=== PATIENT | male | born 1965 | race Caucasian/White ===

== ENCOUNTER 2017-07-31 16:00 | Day surgery (SDC) | payer SELFPAY ==
[~2017-07-31] VITALS: Ht 170.2 cm; Wt 83.6 kg
[~2017-07-31 16:00] MED LIST: DESYREL 100MG100 MG PO; DESYREL 50MG50 MG PO; FEROSUL325 MG PO; FLAGYL500 MG PO; K-TAB20 PO; LOPRESSOR 225 MG/TAB PO; MEBENDAZOLE100 MG PO; NORCO 325 MG-51 TAB PO; PREVACID 15MG15 M1 PO; PRIL40 PO; ZOFRAN 4MG T4 MG/TAB PO
[2017-07-31] MEDS ORDERED: DESYREL 50MG50 MG PO (16:08)
[2017-07-31 18:01] LABS: BASO % 0.2 % (0.0-2.0); EOS % 0.2 % (0-4.0); GRAN # 10.9 (1.4-6.5); GRAN % 83.2 % (42.2-75.2); HEMATOCRIT 40.4 % (42.0-52.0); HEMOGLOBIN 14.1 g/dl (13.5-18.0); LYMPH # 0.9 (1.2-3.4); LYMPH % 6.7 % (20.0-51.0); MEAN CELL VOLUME 90 fl (80.0-100.0); MEAN CORPUSCULAR HEMOGLOBIN 31 pg (27.0-31.0); MEAN CORPUSCULAR HGB CONC 35 g/dl (33.0-37.0); MEAN PLATELET VOLUME 8.6 fl (7.4-10.4); MONO # 1.2 (0.1-0.6); MONO % 9.2 % (1.7-9.3); PLATELET COUNT 230 K/mm3 (130-400); RED BLOOD COUNT 4.49 M/mm3 (4.20-5.60); REDCELL DISTRIBUTION WIDTH-CV 13.8 % (11.5-14.5)
[2017-07-31 18:11] LABS: ALBUMIN 4.1 gm/dL (3.5-5.0); CALCIUM 8.7 mg/dL (8.4-10.2); CREATININE, serum 0.88 mg/dL (0.66-1.25); TOTAL PROTEIN 7.1 gm/dL (6.4-8.2)
[2017-07-31 18:14] LABS: POTASSIUM 2.9 mmol/L (3.4-5.0)
[2017-07-31 21:02] VITALS: BP 102/51; PULSE 103; TEMP 98.5
[2017-07-31 21:49] VITALS: BP 115/69; PULSE 103
[2017-07-31 22:19] VITALS: BP 123/65; PULSE 101; TEMP 98.5
[2017-07-31 23:19] VITALS: BP 120/72; PULSE 87; TEMP 98.7
[2017-08-01 00:19] VITALS: BP 118/70; PULSE 87; TEMP 98.9
[2017-08-01 01:39] VITALS: BP 130/80; PULSE 95
== END 2017-08-01 01:00 | disposition home or self-care (01) ==
LOC: COL.ER 16:00 → SDCO 18:58 → SURG 18:58 → EDBEDREQ 19:11 → SDCO 08-01 01:00
PROVIDERS: Emergency Medicine
DX: T18.5XXA Foreign body in anus and rectum, initial encounter (principal); K62.6 Ulcer of anus and rectum; F17.210 Nicotine dependence, cigarettes, uncomplicated
CPT/HCPCS: OP; J0330; J1100; J2704; J2765; J3010; J3480; J7030; J7120

== ENCOUNTER 2018-12-10 23:22 | Emergency (ER) | payer SELFPAY ==
[~2018-12-10] VITALS: Ht 170.2 cm; Wt 73.6 kg
[2018-12-10 23:50] VITALS: TEMP 96.9
[2018-12-11 00:25] LABS: HEMATOCRIT 42.6 % (42.0-52.0); HEMOGLOBIN 13.8 g/dl (13.5-18.0); MEAN CELL VOLUME 76 fl (80.0-100.0); MEAN CORPUSCULAR HEMOGLOBIN 25 pg (27.0-31.0); MEAN CORPUSCULAR HGB CONC 32 g/dl (33.0-37.0); MEAN PLATELET VOLUME 9.9 fl (7.4-10.4); PLATELET COUNT 282 K/mm3 (130-400); RED BLOOD COUNT 5.59 M/mm3 (4.20-5.60); REDCELL DISTRIBUTION WIDTH-CV 19.4 % (11.5-14.5)
[2018-12-11 00:38] LABS: ALANINE AMINOTRANSFERASE 41 U/L (21-72); ALBUMIN 4.8 gm/dL (3.5-5.0); ALKALINE PHOSPHATASE 75 U/L (50-136); ANION GAP 17 mmol/L (7-16); AST,SGOT 86 U/L (15-37); BILIRUBIN,TOTAL 0.6 mg/dL (0.0-1.0); BLOOD UREA NITROGEN 64 mg/dL (9-20); CALCIUM 9.6 mg/dL (8.4-10.2); CARBON DIOXIDE 17 mmol/L (22-30); CHLORIDE 101 mmol/L (98-107); CREATININE, serum 3.41 (0.66-1.25); GLUCOSE 120 mg/dL (74-106); LIPASE 107 U/L (23-300); POTASSIUM 4.4 mmol/L (3.4-5.0); SODIUM 135 mmol/L (137-145); TOTAL PROTEIN 8.6 gm/dL (6.4-8.2)
[2018-12-11 00:44] LABS: ALCOHOL(ethanol),MEDICAL < 10 mg/dL; ANISOCYTOSIS 1+; BAND 4 % (0-10); LYMPHOCYTE 7 % (20.0-51.0); MICROCYTOSIS 1+; NEUTROPHILS 80 % (42.0-75.2); PLATELET ESTIMATE NORMAL (NORMAL)
[2018-12-11 00:48] LABS: TROPONIN-I 0.097 ng/mL (0.000-0.035)
[2018-12-11 01:04] LABS: COLLECTION METHOD CLEAN CATCH
[2018-12-11 01:17] LABS: MUCOUS Present /lpf; PH 5 (5-8); URINE APPEARANCE Clear; URINE BACTERIA Rare /hpf; URINE BILIRUBIN Negative (NEGATIVE); URINE BLOOD 3+ (NEGATIVE); URINE COLOR Yellow; URINE GLUCOSE Negative (NEGATIVE); URINE KETONE Negative (NEGATIVE); URINE LEUKOCYTE ESTERASE 1+ (NEGATIVE); URINE NITRATE Negative (NEGATIVE); URINE PROTEIN(semi-quant) 1+ (NEGATIVE); URINE UROBILINOGEN Negative (NEGATIVE)
[2018-12-11 02:00] VITALS: BP 139/104; PULSE 94
== END 2018-12-11 02:10 | disposition short-term general hospital (02) ==
LOC: COL.ER 23:22
PROVIDERS: Nurse Practitioner
DX: N39.0 Urinary tract infection, site not specified (principal); N17.9 Acute kidney failure, unspecified; I48.91 Unspecified atrial fibrillation; F17.210 Nicotine dependence, cigarettes, uncomplicated; Z98.890 Other specified postprocedural states
CPT/HCPCS: A4216; J0696; J2405; J7030

== ENCOUNTER 2019-07-21 00:17 | Emergency (ER) | payer SELFPAY ==
[~2019-07-21] VITALS: Ht 170.2 cm; Wt 79.5 kg
[2019-07-21 00:44] LABS: COLLECTION METHOD CLEAN CATCH
[2019-07-21 02:11] LABS: MUCOUS Present /lpf; PH 5 (5-8); URINE APPEARANCE Cloudy; URINE BACTERIA Rare /hpf; URINE BILIRUBIN Negative (NEGATIVE); URINE BLOOD Negative (NEGATIVE); URINE COLOR Yellow; URINE GLUCOSE Negative (NEGATIVE); URINE KETONE Negative (NEGATIVE); URINE LEUKOCYTE ESTERASE 2+ (NEGATIVE); URINE NITRATE Positive (NEGATIVE); URINE PROTEIN(semi-quant) Negative (NEGATIVE)
[2019-07-21] MEDS ORDERED: OMNICEF 300MG300 MG PO (03:13)
[2019-07-21 04:00] VITALS: BP 122/60; PULSE 62; TEMP 97.9
== END 2019-07-21 04:20 | disposition home or self-care (01) ==
LOC: COL.ER 00:17
PROVIDERS: Physician Assistant
DX: N39.0 Urinary tract infection, site not specified (principal); F17.210 Nicotine dependence, cigarettes, uncomplicated
CPT/HCPCS: J0696

== ENCOUNTER 2019-10-18 13:05 | Observation (INO) | payer SELFPAY ==
[2019-10-17 22:21] VITALS: BP 157/87; PULSE 85; TEMP 98.3
[~2019-10-18] VITALS: Ht 172.7 cm; Wt 88.6 kg
[2019-10-18] VITALS (13 sets, daily range): BP systolic 154–167; BP diastolic 88–100; PULSE 81–90; TEMP 98
[~2019-10-18 13:05] MED LIST changes: +OMNICEF 300MG300 MG PO
[2019-10-18 15:00] LABS: BASO # 0.1 (0.0-0.2); BASO % 0.9 % (0.0-2.0); EOS # 0.5 (0.0-0.7); EOS % 6.9 % (0-4.0); GRAN # 3.7 (1.4-6.5); GRAN % 54.6 % (42.2-75.2); HEMATOCRIT 43.9 % (42.0-52.0); HEMOGLOBIN 14.1 g/dl (13.5-18.0); LYMPH # 1.8 (1.2-3.4); LYMPH % 25.8 % (20.0-51.0); MEAN CELL VOLUME 89 fl (80.0-100.0); MEAN CORPUSCULAR HEMOGLOBIN 28 pg (27.0-31.0); MEAN CORPUSCULAR HGB CONC 32 g/dl (33.0-37.0); MEAN PLATELET VOLUME 8.7 fl (7.4-10.4); MONO # 0.8 (0.1-0.6); MONO % 11.1 % (1.7-9.3); PLATELET COUNT 250 K/mm3 (130-400); RED BLOOD COUNT 4.96 M/mm3 (4.20-5.60); REDCELL DISTRIBUTION WIDTH-CV 15.7 % (11.5-14.5)
[2019-10-18 15:04] LABS: PROTHROMBIN TIME 11.3 SECONDS (9.7-12.8)
[2019-10-18 15:06] LABS: BILIRUBIN,TOTAL 0.6 mg/dL (0.0-1.0); CALCIUM 8.5 mg/dL (8.4-10.2); CREATININE, serum 0.71 (0.66-1.25); POTASSIUM 3.4 mmol/L (3.4-5.0); TOTAL PROTEIN 7.3 gm/dL (6.4-8.2)
--- NOTE | 2019-10-18 17:34 | NUR ---
patient arrived to the floor at this time. He is awake and alert. First set of vitals are stable. Pt denies pain at this time. Lung sounds are clear, heart sounds are normal. Radial and pedal pulses were easily palpable, bowel sounds present. No incision site. Will continue to monitor vitals and post op status.
--- NOTE | 2019-10-18 19:13 | NUR ---
Recevied report from UZMA Vick. Pt is currently sitting in bed eating his dinner. Pt has his call light within reach and his bed is in lowest position.
--- NOTE | 2019-10-18 22:30 | NUR ---
Pt was discharged at 2200. Pt IV was discontinued at this time. Pt were within the normal limits for him. Pt did inform me that he did not have a ride. supervisor buffing and pasting was contacted and the pt was provided with a taxi ride home. Pt was educated on when to follow up with and appointment. He was given the information to contact his doctor if he experience rectal bleeding or pain. He was educated on remaining on a regular diet, he had no restriction, and activity as tolerated. Pt was wheeled out of the hospital via wheelchair. Pt was able to collect all of his valuables out of his room which was his clothes that he had on and his cell phone. After exiting the hosptial he was also able to load up his bike in the back of his taxi drivers van. Pt was safely in the taxi with his cable reeler and the ticket for his taxi ride was given to the cable reeler.
== END 2019-10-18 22:15 | disposition home or self-care (01) ==
LOC: COL.ER 13:05 → JCC 17:29
PROVIDERS: Family Medicine; ADMIT Surgery
DX: T18.5XXA Foreign body in anus and rectum, initial encounter (principal); F17.210 Nicotine dependence, cigarettes, uncomplicated; I48.91 Unspecified atrial fibrillation; D64.9 Anemia, unspecified
CPT/HCPCS: G0378; J0330; J1100; J1885; J2405; J2704; J3010; J7030

== ENCOUNTER 2019-11-17 13:24 | Emergency (ER) | payer SELFPAY ==
[~2019-11-17] VITALS: Ht 172.7 cm; Wt 86.4 kg
[2019-11-17 13:27] VITALS: TEMP 97.1
[2019-11-17 14:24] LABS: BASO # 0.1 (0.0-0.2); BASO % 0.6 % (0.0-2.0); EOS # 0.5 (0.0-0.7); EOS % 4.1 % (0-4.0); GRAN # 8.5 (1.4-6.5); GRAN % 73.6 % (42.2-75.2); HEMATOCRIT 42.8 % (42.0-52.0); HEMOGLOBIN 14.1 g/dl (13.5-18.0); LYMPH # 1.3 (1.2-3.4); LYMPH % 11.2 % (20.0-51.0); MEAN CELL VOLUME 89 fl (80.0-100.0); MEAN CORPUSCULAR HEMOGLOBIN 29 pg (27.0-31.0); MEAN CORPUSCULAR HGB CONC 33 g/dl (33.0-37.0); MEAN PLATELET VOLUME 9.8 fl (7.4-10.4); MONO # 1.2 (0.1-0.6); MONO % 10.2 % (1.7-9.3); PLATELET COUNT 284 K/mm3 (130-400); RED BLOOD COUNT 4.79 M/mm3 (4.20-5.60); REDCELL DISTRIBUTION WIDTH-CV 15.8 % (11.5-14.5)
[2019-11-17 14:30] LABS: PROTHROMBIN TIME 11.5 SECONDS (9.7-12.8)
[2019-11-17 14:33] LABS: ALANINE AMINOTRANSFERASE 18 U/L (4-49); ALBUMIN 3.9 gm/dL (3.5-5.0); ALKALINE PHOSPHATASE 83 U/L (50-136); AST,SGOT 29 U/L (15-37); BILIRUBIN,TOTAL 0.7 mg/dL (0.0-1.0); BLOOD UREA NITROGEN 14 mg/dL (9-20); CALCIUM 8.7 mg/dL (8.4-10.2); CARBON DIOXIDE 24 mmol/L (22-30); CREATININE, serum 0.99 (0.66-1.25); GLUCOSE 138 mg/dL (74-106); POTASSIUM 3.5 mmol/L (3.4-5.0); SODIUM 136 mmol/L (137-145); TOTAL PROTEIN 7.3 gm/dL (6.4-8.2)
[2019-11-17 14:34] LABS: CHLORIDE 102 mmol/L (98-107)
[2019-11-17 14:48] LABS: ALCOHOL(ethanol),MEDICAL < 10 mg/dL; ANION GAP 10 mmol/L (7-16)
[2019-11-17 15:35] LABS: COLLECTION METHOD CLEAN CATCH
[2019-11-17 15:50] LABS: MUCOUS Present /lpf; PH 6 (5-8); URINE APPEARANCE Hazy; URINE BACTERIA Moderate /hpf; URINE BILIRUBIN Negative (NEGATIVE); URINE BLOOD 1+ (NEGATIVE); URINE COLOR Yellow; URINE GLUCOSE Negative (NEGATIVE); URINE KETONE Negative (NEGATIVE); URINE LEUKOCYTE ESTERASE 1+ (NEGATIVE); URINE NITRATE Positive (NEGATIVE); URINE PROTEIN(semi-quant) Negative (NEGATIVE); URINE RBC 0-2 /hpf; URINE UROBILINOGEN Negative (NEGATIVE)
[2019-11-17 16:00] VITALS: BP 143/91; PULSE 78
[2019-11-17 16:02] LABS: TRICYCLIC ANTIDEPRESS URINE NEGATIVE
== END 2019-11-17 16:00 | disposition short-term general hospital (02) ==
LOC: COL.ER 13:24
PROVIDERS: Emergency Medicine; Nurse Practitioner Primary Care
DX: S02.841A Fracture of lateral orbital wall, right side, initial encounter for closed fracture (principal); S02.31XA Fracture of orbital floor, right side, initial encounter for closed fracture; S02.19XA Other fracture of base of skull, initial encounter for closed fracture; S06.5X0A Traumatic subdural hemorrhage without loss of consciousness, initial encounter; I16.9 Hypertensive crisis, unspecified; F17.210 Nicotine dependence, cigarettes, uncomplicated; Z23 Encounter for immunization; Y04.0XXA Assault by unarmed brawl or fight, initial encounter
CPT/HCPCS: J0295; J1170; J3010; J7030; J7050

== ENCOUNTER 2020-07-03 14:28 | Emergency (ER) | payer OTHER ==
[~2020-07-03] VITALS: Ht 170.2 cm; Wt 81.8 kg
[~2020-07-03 14:28] MED LIST changes: +PREDNISONE20 MG PO
[2020-07-03 14:37] VITALS: BP 178/110; TEMP 98.1
[2020-07-03] MEDS ORDERED: CEPHALEXIN500 M1 PO (15:13)
[2020-07-03 15:41] VITALS: PULSE 78
== END 2020-07-03 15:40 | disposition home or self-care (01) ==
LOC: COL.ER 14:28
DX: L30.9 Dermatitis, unspecified (principal); L01.00 Impetigo, unspecified; F17.200 Nicotine dependence, unspecified, uncomplicated

== ENCOUNTER 2020-07-23 01:53 | Emergency (ER) | payer OTHER ==
[~2020-07-23] VITALS: Ht 172.7 cm; Wt 81.8 kg
[~2020-07-23 01:53] MED LIST changes: +CEPHALEXIN500 M1 PO
[2020-07-23 01:57] VITALS: TEMP 97.7
[2020-07-23] MEDS ORDERED: PREDNISONE20 MG PO (02:23)
[2020-07-23] MEDS ORDERED: BACTRIM DS 8001 TAB PO (02:23)
[2020-07-23 02:35] VITALS: BP 151/99; PULSE 82
== END 2020-07-23 02:35 | disposition home or self-care (01) ==
LOC: COL.ER 01:53
DX: L30.9 Dermatitis, unspecified (principal); L01.00 Impetigo, unspecified
CPT/HCPCS: J7512

== ENCOUNTER 2022-03-02 22:54 | Day surgery (SDC) | payer SELFPAY ==
[~2022-03-02] VITALS: Ht 172.7 cm; Wt 84.1 kg
[~2022-03-02 22:54] MED LIST changes: +BACTRIM DS 8001 TAB PO
[2022-03-03 02:22] VITALS: BP 155/110; PULSE 80; TEMP 98.3
== END 2022-03-03 ==
LOC: COL.ER 22:54 → SDCO 03-03 00:38
DX: T18.5XXA Foreign body in anus and rectum, initial encounter (principal); X58.XXXA Exposure to other specified factors, initial encounter
CPT/HCPCS: J2405; J2704; J3010; J7120

== ENCOUNTER 2022-09-15 11:17 | Day surgery (SDC) | payer SELFPAY ==
[~2022-09-15] VITALS: Ht 172.7 cm; Wt 78.5 kg
[2022-09-15 12:22] VITALS: BP 179/132; PULSE 114; TEMP 97.2
[2022-09-15 12:55] VITALS: BP 133/103; PULSE 115; TEMP 97.8
[2022-09-15 13:10] VITALS: BP 137/102; PULSE 110
[2022-09-15 13:25] VITALS: BP 139/103; PULSE 112
--- NOTE | 2022-09-15 17:16 | NUR ---
[id number]: PT TO [facility] FROM [facility] S/P COLONOSCOPY A&O, PLACED ON MONITOR, VS AT BASELINE ON RA, DENIES COMPLAINT RECEIVED REPORT AND ASSUMED CARE OF PT FROM [facility] LOVE FRIEND CALLED TO [employer] - ETA [phone] PROVIDED JUICE AND MUFFINE PER REQUEST, TOLERATING WELL HAS TALKED TO PT POST PROCEEDURE PT HAS REMAINED A&O, NAD, VSS ON RA, TOLERATING PO, IS WITHOUT SIGNIFICANT COMPLAINT, WITH STEADY GAIT THRU OUT STAY IV D/C'D. D/C INSTRUCTIONS, ANY FOLLOW UP REVIEWED AND HANDED TO PT. ALL QUESTIONS AND CONCERNS ADDRESSED TO PT SATISFACTION. TAKEN TO EXIT VIA W/C WITH ALL BELONGINGS AND PAPERWORK IN HAND, ASSISTED INTO PASSENGER SEAT OF POV. FRIEND TO DRIVE HOME.
== END 2022-09-15 13:35 | disposition home or self-care (01) ==
LOC: SDCO 11:17
DX: K62.3 Rectal prolapse (principal); R15.9 Full incontinence of feces; K62.89 Other specified diseases of anus and rectum; F17.210 Nicotine dependence, cigarettes, uncomplicated; I10 Essential (primary) hypertension
CPT/HCPCS: J2704; J7120

== ENCOUNTER 2024-03-27 08:38 | Emergency (ER) | payer SELFPAY ==
[~2024-03-27] VITALS: Ht 170.2 cm; Wt 79.5 kg
[2024-03-27 08:43] VITALS: TEMP 97.5
[2024-03-27 09:38] VITALS: BP 129/89; PULSE 101
== END 2024-03-27 09:41 | disposition home or self-care (01) ==
LOC: COL.ER 08:38
DX: G56.32 Lesion of radial nerve, left upper limb (principal); Z87.891 Personal history of nicotine dependence